=== PATIENT | female | born 1960 | race Caucasian/White ===

== ENCOUNTER 2021-08-27 08:24 | Outpatient (CLI) | payer BC | END 2021-08-27 08:25 | disposition home or self-care (01) | LOC: CSHMAMMO 08:24 | PROVIDERS: ATTEND Obstetrics & Gynecology | DX: Z12.31 Encounter for screening mammogram for malignant neoplasm of breast (principal) | CPT/HCPCS: 77063; 77067 ==

== ENCOUNTER 2022-08-30 09:25 | Outpatient (CLI) | payer BC | END 2022-08-30 09:26 | disposition home or self-care (01) | LOC: CSHMAMMO 09:25 | PROVIDERS: ATTEND Obstetrics & Gynecology | DX: Z12.31 Encounter for screening mammogram for malignant neoplasm of breast (principal) | CPT/HCPCS: 77063; 77067 ==

== ENCOUNTER 2023-07-02 08:32 | Outpatient (CLI) | payer MEDICARE, BC | END 2023-07-02 08:33 | disposition home or self-care (01) | LOC: CSHULT 08:32 | PROVIDERS: ATTEND Internal Medicine Gastroenterology | DX: K74.60 Unspecified cirrhosis of liver (principal); I87.8 Other specified disorders of veins | CPT/HCPCS: 36415; 76705; 80053; 80061; 82043; 83036; 83735; 84439; 84443; 85025 ==

== ENCOUNTER 2023-09-17 14:32 | Outpatient (CLI) | payer MEDICARE, BC | END 2023-09-17 14:33 | disposition home or self-care (01) | LOC: CSHMAMMO 14:32 | PROVIDERS: ATTEND Internal Medicine | DX: Z12.31 Encounter for screening mammogram for malignant neoplasm of breast (principal) | CPT/HCPCS: 77063; 77067 ==

== ENCOUNTER 2024-10-20 08:51 | Outpatient (CLI) | payer MEDICARE | END 2024-10-20 08:52 | disposition home or self-care (01) | LOC: CSHMAMMO 08:51 | PROVIDERS: ATTEND Internal Medicine | DX: Z12.31 Encounter for screening mammogram for malignant neoplasm of breast (principal) | CPT/HCPCS: 77063; 77067 ==